=== PATIENT | female | born 1975 | race Caucasian/White ===

== ENCOUNTER 2016-07-03 12:57 | Emergency (ER) | payer BC ==
[~2016-07-03 12:57] MED LIST: AZITHROMYCIN250 MG PO; CIPRO PO; DICLOFENAC SOD100 GM EXT; HYCODAN60 ML 5MG/ PO; KEFLEX500 M1 PO; LEVAQUIN; LIDOCAINE PATCH; MACROBID100 M1 PO; NO MEDICATIONS; PERCOCET 10/31 UDTA1; PHENERGAN PO; PHENTERMINE H37.5 M1 PO; PROAIR HFA8.5 GM INH; PROMETHAZINE D118 ML PO; ROBAXIN 750750 M1 PO; ROBAXIN500 MG PO; TAMIFLU75 M1 PO; ULTRAM PO; VOLTAREN50 MG PO
[2016-07-03 12:58] LABS: BASOPHIL% 0.2 % (0-2.5); EOSINOPHIL# 0.2 X10e3 (0-0.7); EOSINOPHIL% 1.6 % (0.0-7.0); HEMATOCRIT 42.8 % (35.0-45.0); HEMOGLOBIN 14.2 gm/dL (12.0-16.0); LYMPHOCYTE# 0.7 X10e3 (1.0-3.5); LYMPHOCYTE% 5.7 % (17.0-45.0); MEAN CELL VOLUME 95.4 FL (83-96); MEAN CORPUSCULAR HEMOGLOBIN 31.6 PG (28-34); MEAN CORPUSCULAR HGB CONC 33.1 g/dL (30-36); MEAN PLATELET VOLUME 8.6 FL (6.5-11.5); MONOCYTE# 0.5 X10e3 (0-1.0); MONOCYTE% 4.3 % (3.0-12.0); NEUTROPHIL# 11.1 X10e3 (1.5-7.1); NEUTROPHIL% 88.2 % (40-75); PLATELET COUNT 232 X10e3 (140-420); RED BLOOD COUNT 4.49 X10e (3.90-5.30); RED CELL DISTRIBUTION WIDTH 13.4 % (11.0-15.5); WHITE BLOOD COUNT 12.6 X10e3 (4.0-10.5)
[2016-07-03 13:01] LABS: DIFF IND NO
[2016-07-03 13:15] LABS: ALBUMIN SERUM 4.2 g/dL (3.5-5.0); ALKALINE PHOSPHATASE 54 U/L (32-92); ALT (SGPT) 30 U/L (10-40); AMYLASE 33 U/L (0-46); AST (SGOT) 18 U/L (10-42); BILIRUBIN,TOTAL 0.6 mg/dL (0.2-2.0); BLOOD UREA NITROGEN 24 mg/dL (9-23); CALCIUM SERUM 8.4 mg/dL (8.4-10.2); CARBON DIOXIDE 25 mmol/L (22-31); CHLORIDE 107 mmol/L (100-111); CREATININE SERUM 0.8 mg/dL (0.6-1.4); GLOM FILT RATE Estimated ABOVE60 mL/min (>60); GLUCOSE FASTING 106 mg/dL (70-110); LIPASE 32 U/L (22-51); POTASSIUM 3.6 mmol/L (3.5-5.1); PROTEIN TOTAL SERUM 7.3 g/dL (6.0-8.3); SODIUM 135 mmol/L (135-145)
[2016-07-03 13:16] LABS: BILIRUBIN, DIRECT <0.1 mg/dL (0.0-0.2); BILIRUBIN,INDIRECT 0.5 mg/dL (0.0-0.9)
== END 2016-07-03 13:56 | disposition home or self-care (01) ==
LOC: SED 12:57
PROVIDERS: Emergency Medicine
DX: K52.9 Noninfective gastroenteritis and colitis, unspecified (principal); J01.00 Acute maxillary sinusitis, unspecified; R04.0 Epistaxis; Z90.49 Acquired absence of other specified parts of digestive tract; Z88.2 Allergy status to sulfonamides
CPT/HCPCS: 36415; 80048; 80076; 82150; 83690; 84703; 85025; 96374; 96375; 99283; 99284; C9113; J2270; J2405

== ENCOUNTER 2016-12-07 07:17 | Emergency (ER) | payer BC ==
--- NOTE | ~2016-12-07 | CT4 ---
[facility] A Service [facility] RADIOLOGY TEXT RESULTS PATIENT: HAIM JOSEPH LOCATION: SED : 71 UNIT #: [id number] AGE: [address]: Hunter Toledo MD SEX: F ORDER DR: [id number] [address] [address] [id number] E MR#: [id number] Acc #: [id number] NAME: HAIM JOSEPH : 1975 SEX: F STUDY DATE/TIME: 12/07/2016 8:21 UNIT: SED ROOM: STUDY DESCRIPTION: CT Abd and Pelv Wo Cont Attending Physician: Hunter Toledo M.D. Ordering Physician: Hunter Toledo M.D. Primary Care Physician: Azalea Diggs M.D. MEDICAL IMAGING REPORT This report is preliminary unless electronic signature is present. EXAM CT of the abdomen and pelvis without contrast HISTORY Right-sided pain and back pain with vomiting, nausea since 2 a.m. History of kidney stones. COMPARISON None TECHNIQUE Axial 3.0 mm images were obtained through the abdomen and pelvis without IV or oral contrast. Sagittal and coronal reconstructions were generated. This CT exam was performed with one or more of the following radiation dose reduction techniques: automatic exposure control, adjustment of mA and/or kV according to patient size, and iterative reconstruction. FINDINGS The lung bases are clear. The gallbladder has been removed. The liver, spleen, pancreas and adrenal glands are normal. The left kidney is normal. The right kidney shows mild hydronephrosis. The right ureter is slightly dilated and this is caused by a small stone in the distal right ureter measuring 2.5 mm in diameter. The aorta is normal in size and there is no adenopathy. The bowel, including the appendix, appears normal. The uterus and adnexal regions and bladder are normal. The bones show mild degenerative changes. IMPRESSION 1. 2.5 mm distal right ureteral stone causing mild right hydronephrosis. 2. Prior hysterectomy. [facility] A Service [facility] RADIOLOGY TEXT RESULTS PATIENT: HAIM JOSEPH LOCATION: [facility] [place] : [birth year] UNIT #: [id number] AGE: [address]: Hunter Toledo MD SEX: F ORDER DR: 3. Normal appendix. Dictated by... Enrrique Shell M.D. THIS IS AN ELECTRONICALLY VERIFIED REPORT Enrrique Shell M.D. at 12/07/2016 12:12 PM [place] TD: 12/07/2016 11:21 JOB #: [id number] MEDICAL IMAGING REPORT Page 1 of 1
[2016-12-07 07:42] LABS: BASOPHIL# 0.1 X10e3 (0-0.3); BASOPHIL% 1.3 % (0-2.5); EOSINOPHIL# 0.3 X10e3 (0-0.7); EOSINOPHIL% 2.6 % (0.0-7.0); HEMATOCRIT 40.4 % (35.0-45.0); HEMOGLOBIN 13.9 gm/dL (12.0-16.0); LYMPHOCYTE% 29.3 % (17.0-45.0); MEAN CELL VOLUME 95.2 FL (83-96); MEAN CORPUSCULAR HEMOGLOBIN 32.7 PG (28-34); MEAN CORPUSCULAR HGB CONC 34.3 g/dL (30-36); MEAN PLATELET VOLUME 8.4 FL (6.5-11.5); MONOCYTE# 0.7 X10e3 (0-1.0); MONOCYTE% 7.2 % (3.0-12.0); NEUTROPHIL# 6.2 X10e3 (1.5-7.1); NEUTROPHIL% 59.6 % (40-75); PLATELET COUNT 268 X10e3 (140-420); RED BLOOD COUNT 4.24 X10e (3.90-5.30); WHITE BLOOD COUNT 10.4 X10e3 (4.0-10.5)
[2016-12-07 07:43] LABS: DIFF IND NO
[2016-12-07 07:59] LABS: BILIRUBIN,TOTAL 0.4 mg/dL (0.2-2.0); BUN/CREATININE RATIO 18.75; CALCIUM SERUM 8.6 mg/dL (8.4-10.2); CREATININE SERUM 0.8 mg/dL (0.6-1.4); GLOM FILT RATE Estimated 90.4 mL/min (>60); POTASSIUM 3.5 mmol/L (3.5-5.1); PROTEIN TOTAL SERUM 7.3 g/dL (6.0-8.3)
[2016-12-07 08:01] LABS: URINE SOURCE CLEAN CATCH
[2016-12-07 08:03] LABS: URINE APPEARANCE SL CLOUDY; URINE BILIRUBIN NEG (NEG); URINE BLOOD 3+ (NEG); URINE COLOR YELLOW; URINE GLUCOSE NEG (NORM); URINE KETONE NEG (NEG); URINE LEUKOCYTE ESTERASE NEG (NEG); URINE NITRATE NEG (NEG); URINE PROTEIN TRACE (NEG); URINE SPECIFIC GRAVITY 1.025 (1.003-1.035)
[2016-12-07 08:19] LABS: MICRO INDICATED? YES
[2016-12-07 08:25] LABS: URINE BACTERIA NEG (NEG); URINE RBC 200-300 /[HPF] (0-2); URINE SQUAMOUS EPITHELIAL CELL OCCAS /[HPF]; URINE WBC 0-2 /[HPF] (0-5)
== END 2016-12-07 09:52 | disposition home or self-care (01) ==
LOC: SED 07:17
PROVIDERS: Emergency Medicine
DX: N13.2 Hydronephrosis with renal and ureteral calculous obstruction (principal); F17.200 Nicotine dependence, unspecified, uncomplicated; Z88.2 Allergy status to sulfonamides; Z88.5 Allergy status to narcotic agent
CPT/HCPCS: 36415; 74176; 80053; 81003; 84703; 85025; 96361; 96374; 96375; 96376; 99284; J1170; J1885; J2405

== ENCOUNTER 2016-12-18 19:29 | Emergency (ER) | payer BC ==
[~2016-12-18] VITALS: Ht 167.6 cm; Wt 82.5 kg
--- NOTE | ~2016-12-18 | CT4 ---
[facility] A Service of [facility] RADIOLOGY TEXT RESULTS PATIENT: HAIM JOSEPH LOCATION: SED : [birth year] UNIT #: [id number] AGE: [address]: Hector Choi MD SEX: F ORDER DR: [id number] [place] [id number] E MR#: [id number] Acc #: [id number] NAME: HAIM JOSEPH : 1975 SEX: F STUDY DATE/TIME: 12/18/2016 20:37 UNIT: SED ROOM: STUDY DESCRIPTION: CT Abd and Pelv Wo Cont Attending Physician: Hector Choi M.D. Ordering Physician: Hector Choi M.D. Primary Care Physician: Azalea Diggs M.D. MEDICAL IMAGING REPORT This report is preliminary unless electronic signature is present. EXAM CT abdomen and pelvis without contrast HISTORY Right sided flank pain, dysuria, recently diagnosed with kidney stone 12/07/2016. FINDINGS Axial images performed through the abdomen and pelvis without contrast. Multiplanar reconstructed images reviewed. This CT exam was performed with one or more of the following radiation dose reduction techniques: automatic exposure control, adjustment of mA and/or kV according to patient size, and iterative reconstruction. ABDOMEN: Increasing right-sided hydronephrosis and hydroureter with an apparent 2-3 mm right UVJ stone. Patient is post cholecystectomy. PELVIS: Mildly enlarged uterus. Osseous structures unremarkable. IMPRESSION Increasing right-sided hydronephrosis and hydroureter with perinephric edema, findings all compatible with worsening right-sided obstruction. There is a suspected 3 mm right UVJ stone. Dictated by... Salvatore Roldan M.D. THIS IS AN ELECTRONICALLY VERIFIED REPORT [facility] A Service [facility] RADIOLOGY TEXT RESULTS PATIENT: HAIM JOESPH LOCATION: SED : 71 UNIT #: [id number] AGE: [address]: Hector Choi MD SEX: F ORDER DR: Salvatore Roldan M.D. at 12/19/2016 6:55 PM NELL/agata TD: 12/19/2016 04:49 JOB #: [id number] MEDICAL IMAGING REPORT Page 1 of 1
[2016-12-18] MEDS ORDERED: LOSARTAN-HCTZ1 EACH (19:35)
[2016-12-18] MEDS ORDERED: NORCO 7.5-3251 EACH PO (19:36)
[2016-12-18 20:18] LABS: URINE APPEARANCE CLEAR; URINE BILIRUBIN NEG (NEG); URINE BLOOD 3+ (NEG); URINE COLOR YELLOW; URINE GLUCOSE NEG (NORM); URINE KETONE NEG (NEG); URINE LEUKOCYTE ESTERASE NEG (NEG); URINE NITRATE NEG (NEG); URINE PH 5.5 (5-8); URINE PROTEIN NEG (NEG); URINE SOURCE CLEAN CATCH; URINE SPECIFIC GRAVITY >=1.030 (1.003-1.035); URINE UROBILINOGEN 0.2 MG/DL (NORM)
[2016-12-18 20:19] LABS: BASOPHIL# 0.1 X10e3 (0-0.3); BASOPHIL% 0.5 % (0-2.5); EOSINOPHIL# 0.1 X10e3 (0-0.7); EOSINOPHIL% 0.8 % (0.0-7.0); HEMATOCRIT 39.5 % (35.0-45.0); HEMOGLOBIN 13.5 gm/dL (12.0-16.0); LYMPHOCYTE# 1.4 X10e3 (1.0-3.5); LYMPHOCYTE% 8.4 % (17.0-45.0); MEAN CELL VOLUME 95.8 FL (83-96); MEAN CORPUSCULAR HEMOGLOBIN 32.8 PG (28-34); MEAN CORPUSCULAR HGB CONC 34.2 g/dL (30-36); MEAN PLATELET VOLUME 8.9 FL (6.5-11.5); MONOCYTE# 0.7 X10e3 (0-1.0); MONOCYTE% 4.1 % (3.0-12.0); NEUTROPHIL# 13.9 X10e3 (1.5-7.1); NEUTROPHIL% 86.2 % (40-75); PLATELET COUNT 256 X10e3 (140-420); RED BLOOD COUNT 4.13 X10e (3.90-5.30); RED CELL DISTRIBUTION WIDTH 12.9 % (11.0-15.5); WHITE BLOOD COUNT 16.2 X10e3 (4.0-10.5)
[2016-12-18 20:20] LABS: MICRO INDICATED? YES
[2016-12-18 20:21] LABS: DIFF IND NO
[2016-12-18 20:27] LABS: CULTURE INDICATED? NO; URINE BACTERIA NEG (NEG); URINE SQUAMOUS EPITHELIAL CELL FEW /[HPF]; URINE WBC NEG /[HPF] (0-5)
[2016-12-18 20:37] LABS: ALBUMIN SERUM 4.1 g/dL (3.5-5.0); BILIRUBIN,TOTAL 0.2 mg/dL (0.2-2.0); CREATININE SERUM 1.2 mg/dL (0.6-1.4); GLOM FILT RATE Estimated 55.3 mL/min (>60); POTASSIUM 3.4 mmol/L (3.5-5.1); PROTEIN TOTAL SERUM 7.3 g/dL (6.0-8.3)
== END 2016-12-18 22:29 | disposition home or self-care (01) ==
LOC: SED 19:29
DX: N13.2 Hydronephrosis with renal and ureteral calculous obstruction (principal); I10 Essential (primary) hypertension; F17.210 Nicotine dependence, cigarettes, uncomplicated; Z90.49 Acquired absence of other specified parts of digestive tract; Z88.2 Allergy status to sulfonamides
CPT/HCPCS: 36415; 74176; 80053; 81003; 84703; 85025; 96361; 96374; 96375; 99284; J0696; J2270; J2405